=== PATIENT | male | born 1975 | race Caucasian/White ===

== ENCOUNTER 2017-11-17 05:27 | Day surgery (SDC) | payer OTHER ==
[2017-11-17] MEDS ORDERED: CIPROFLOXACIN 400MG/D5W 200 ML IVPB (06:00)
[2017-11-17] MEDS ORDERED: LIDOCAINE 100 MG SYRINGE (07:42)
[2017-11-17] MEDS ORDERED: PROPOFOL 20 ML ×2 (07:42→08:30)
[2017-11-17] MEDS ORDERED: MIDAZOLAM 1 MG/ML 2 ML INJ (07:42)
[2017-11-17] MEDS ORDERED: ROCURONIUM 50 MG INJ (07:42)
[2017-11-17] MEDS: IOHEXOL 300MG/ML 30 ML BTL (08:11)
[2017-11-17] MEDS ORDERED: PHENYLephrine (100 MCG/ML) 5ML SYG (08:17)
[2017-11-17] MEDS ORDERED: ACETAMINOPHEN 1000MG/100ML IV 100 ML (08:21)
[2017-11-17] MEDS ORDERED: ONDANSETRON 4 MG INJ (08:26)
[2017-11-17] MEDS ORDERED: DEXAMETHASONE 4 MG/ML 1 ML INJ (08:26)
[2017-11-17] MEDS ORDERED: SUGAMMADEX SODIUM 200 MG/2 ML VIAL IV (08:26)
[2017-11-17] MEDS ORDERED: LABETALOL HCL 20MG INJ IV (09:30)
[2017-11-17] MEDS ORDERED: hydrALAzine 20 MG INJ IV (09:30)
[2017-11-17] MEDS ORDERED: FENTAnyl 50 MCG/ML VIAL IV ×2 (09:30)
[2017-11-17] MEDS ORDERED: HYDROmorphONE (0.2 MG/ML) 10ML SYG IV ×2 (09:30)
[2017-11-17] MEDS ORDERED: KETOROLAC 15 MG INJ IV (09:30)
[2017-11-17] MEDS ORDERED: CIPROFLOXACIN 400MG/D5W 200 ML (09:59)
[2017-11-17] MEDS: ONDANSETRON 4 MG INJ IV (10:01)
[2017-11-17] MEDS: MEPERIDINE 25 MG INJ IV (10:02)
[2017-11-17] MEDS: HYDROCODONE/APAP (5/325) TAB PO (11:13)
== END 2017-11-17 11:48 | disposition home or self-care (01) ==
LOC: SDS 05:27
DX: N20.0 Calculus of kidney (principal)
CPT/HCPCS: 52356; 74420